=== PATIENT | male | born 1955 | race African-American/Black ===

== ENCOUNTER 2020-10-15 01:46 | Emergency (ER) | payer MEDICAID ==
[~2020-10-15] VITALS: Ht 177.8 cm; Wt 68.0 kg
--- NOTE | 2020-10-15 01:56 | NUR ---
PT CARMENSELDennis C/O SUICIDAL IDEATION WITH PLAN TO RUN INTO TRAFFIC. PT AAOX4. VITAL SIGNS STABLE. RESPIRATIONS EVEN AND UNLABORED. AMBULATORY WITH STEADY GAIT. NO ACUTE DISTRESS NOTED AT THIS TIME. WILL CONTINUE TO MONITOR
[2020-10-15] MEDS ORDERED: OLANZAPINE 10 MG VIAL IM ONE (02:05)
[2020-10-15] MEDS: OLANZAPINE 10 MG VIAL IM ONE (02:18)
[2020-10-15 02:27] LABS: BASOPHILS # (AUTO) 0.1 /CMM (0.0-0.2); BASOPHILS % (AUTO) 0.6 % (0.0-2.0); EOSINOPHILS % (AUTO) 2.1 % (0.0-6.0); HEMATOCRIT 50 % (39-51); HEMOGLOBIN 16.7 g/dL (13.5-17.5); LYMPHOCYTES # (AUTO) 2.4 /CMM (0.8-4.8); LYMPHOCYTES % (AUTO) 19.7 % (20.0-44.0); MEAN CORPUSCULAR HGB CONC 33 g/dl (31.0-36.0); MEAN CORPUSCULAR VOLUME 87 fL (80-96); MONOCYTES % (AUTO) 8.3 % (2.0-12.0); NEUTROPHILS # (AUTO) 8.6 /CMM (1.8-8.9); NEUTROPHILS % (AUTO) 69.3 % (43.0-81.0); PLATELET COUNT (AUTO) 339 /CMM (150-450); RED BLOOD CELL COUNT(AUTO) 5.77 MIL/uL (4.5-6.0); WHITE BLOOD COUNT (AUTO) 12.4 K/uL (4.3-11.0)
[2020-10-15 02:33] LABS: BILIRUBIN,URINE NEGATIVE (NEGATIVE); COLOR,URINE YELLOW (YELLOW); LEUKOCYTE ESTERASE ,URINE NEGATIVE (NEGATIVE); NITRITE, URINE NEGATIVE (NEGATIVE); PROTEIN,URINE NEGATIVE (NEGATIVE); UGLUCOSE NEGATIVE (NEGATIVE); UROBILINOGEN,URINE 0.2 EU/dL (0.2)
[2020-10-15 02:54] LABS: ALANINE AMINOTRANSFERASE 47 U/L (12-78); ALBUMIN 4.5 g/dL (3.4-5.0); ALCOHOL, BLOOD < 3 mg/dL (0-0); ALKALINE PHOSPHATASE 125 U/L (46-116); ASPARTATE AMINOTRANSFERASE 64 U/L (15-37); BILIRUBIN,DIRECT 0.1 mg/dL (0.0-0.2); BILIRUBIN,TOTAL 0.6 mg/dL (0.2-1.0); CALCIUM, SERUM 9.5 mg/dL (8.5-10.1); CARBON DIOXIDE 25 mmol/L (21-32); CHLORIDE 97 mmol/L (98-107); GLUCOSE 81 mg/dL (74-106); POTASSIUM 4.1 mmol/L (3.5-5.1); SODIUM SERUM 133 mmol/L (136-145); UREA NITROGEN, BLOOD 10 mg/dL (7-18)
--- NOTE | 2020-10-15 02:59 | NUR ---
CALL FROM LAB. RAPID COVID NEGATIVE.
--- NOTE | 2020-10-15 03:42 | NUR ---
FACESHEET AND CLINICALS FAXED TO [facility].
--- NOTE | 2020-10-15 06:25 | NUR ---
[facility] ACCEPTED. DR. PARRY [phone]
--- NOTE | 2020-10-15 06:34 | NUR ---
[facility] ETA 1x HOUR
--- NOTE | 2020-10-15 06:39 | NUR ---
CALLED TO TRY AND GIVE REPORT, STAFF STATES, "THE CHARGE NURSE JUST STEPPED OUT OF THE UNIT, CAN YOU CALL BACK IN 10 MINUTES?"
--- NOTE | 2020-10-15 07:18 | NUR ---
REPORT GIVEN TO JASSI HAQ FOR [facility].
--- NOTE | 2020-10-15 07:46 | NUR ---
REPORT GIVEN TO EMS FOR PT TRANSFER TO [facility]
[2020-10-15 07:51] VITALS: BP 127/84
== END 2020-10-15 07:51 ==
LOC: ER 01:48
DX: R45.851 Suicidal ideations (principal); F15.10 Other stimulant abuse, uncomplicated; Z20.822 Contact with and (suspected) exposure to COVID-19; F20.9 Schizophrenia, unspecified
CPT/HCPCS: 36415; 80048; 80076; 80299; 80307; 80320; 81003; 85025; 87426; 96372; 99291; C9803; J3490; G0480